=== PATIENT | male | born 1970 | race Caucasian/White ===

== ENCOUNTER 2016-02-19 04:01 | Emergency (ER) | payer SELFPAY ==
[2016-02-19 04:09] VITALS: TEMP 98.3
[2016-02-19 04:11] VITALS: BMI 30.1
--- NOTE | 2016-02-19 05:01 | EDPRACDOC ---
- General Chief Complaint: Fall Stated Complaint: FALL Time Seen by Provider: 02/19/16 04:18 Information Source: Patient - History of Present Illness Onset: 2 HOURS AGO HPI: PT PRESENTS WITH BACK PAIN AFTER FALLING DOWN STAIRS AT HOME A FEW HOURS AGO. PAIN IS IN LUMBAR SPINE. Pain Severity: Reports: Moderate Injuries/Pain Location: Reports: back (LUMBAR) Associated Symptoms (Fall): Reports: abdominal pain (RADIATING FROM BACK). Denies: chest pain Allergies/Adverse Reactions: Allergies Penicillins Allergy (Verified 02/19/16 04:07) Unknown tramadol [From Ultram] Allergy (Verified 02/19/16 04:07) Itching Home Medications: Ambulatory Orders Cyclobenzaprine HCl [Flexeril] 5 mg PO Q8H PRN #30 tablet 02/19/16 Ibuprofen Tablet [Motrin] 600 mg PO Q6H #30 tab 02/19/16 Oxycodone HCl [Roxicodone] 5 mg PO Q4-6H PRN #30 tablet 02/19/16 ED Past Medical History - History Reviewed Yes Nurses notes reviewed and agree except as marked - Patient Medical History Psychological History: Denies: Depression - Social Medical History Smoking Status: Heavy tobacco smoker (5 or more cigarettes/day or daily pipe/ cigar) Lives In: Home EDM Review of Systems - Review of Systems ROS Negative Except as Marked: Yes All systems reviewed and were negative except as marked Gastrointestinal: Pain (LOWER ABDOMEN). negative: Nausea, Vomiting Musculoskeletal: Back (LUMBAR BACK) - Physical Exam Constitutional: Alert, ETOH Oriented to: Time, Person, Place Last recorded Vital Signs: Last Vital Signs Temp 98.3 F 02/19/16 04:08 Pulse 88 02/19/16 04:08 Resp 18 02/19/16 04:08 BP 125/74 02/19/16 04:08 Pulse Ox 100 02/19/16 04:08 Oxygen Pulse Oxygen Saturation 100 O2 Device Room Air Oxygen Flow Rate Fraction of Inspired Oxygen ( FIO2) - HEENT Head: negative: Deformity, Laceration Eye Exam: negative: Conjunctival Injection, Pale Conjunctiva Oropharynx: negative: Membranes Dry Neck: Denies Pain, In Collar. negative: Limited ROM - Respiratory/Cardiovascular Respiratory: Normal - CTA. negative: Accessory Muscle Use, Diminished, Tachypnea Cardiovascular: negative: Bradycardia, Tachycardia, Irregular - GI Auscultation: Normal Palpation: Normal Tenderness: Non tender - Musculoskeletal Extremities: Radial Pulse (PALPABLE) - Integumentary Skin: Warm, Dry. negative: Rash - Neurologic Memory Impaired: Normal Motor Function: Normal Mood Description: Anxious Thought: Coherent Decision Time to Discharge: 05:37 - Departure Yes I personally saw and evaluated the patient. Disposition: Home Condition: Stable Final Diagnosis: Lumbar compression fracture Qualifiers: Encounter type: initial encounter Fracture type: closed Qualified Code(s): S32.000A - Wedge compression fracture of unspecified lumbar vertebra, initial encounter for closed fracture Instructions: RICE: Routine Care for Injuries, Vertebral Compression Fracture ( ED) Education/Counseling Given To: Patient Education/Counseling Given Regarding: Diagnosis, Treatment, Prognosis, Follow Up Referrals: None,No Provider [Primary Care Provider] - One Week Mart Killian MD [Staff Physician] - Call for Appointment Prescriptions: Cyclobenzaprine HCl [Flexeril] 5 mg PO Q8H PRN #30 tablet PRN Reason: Muscle Spasms Ibuprofen Tablet [Motrin] 600 mg PO Q6H #30 tab Oxycodone HCl [Roxicodone] 5 mg PO Q4-6H PRN #30 tablet PRN Reason: Breakthrough Pain Forms: Excuse Note
--- NOTE | 2016-02-19 05:10 | DIRPT ---
CLINICAL DATA: Status post fall down 15-20 steps, with lower back pain. Initial encounter. EXAM: LUMBAR SPINE - COMPLETE 4+ VIEW COMPARISON: Lumbar spine radiographs performed 03/16/2004, and MRI of the lumbar spine performed 04/13/2004 FINDINGS: There is compression deformity of vertebral body L1, with apparent fracture line noted anteriorly. This may also extend across the anterior inferior edge of vertebral body T12. There is mild grade 1 anterolisthesis of L3 on L4. Intervertebral disc spaces are preserved. The visualized neural foramina are grossly unremarkable in appearance. The visualized bowel gas pattern is unremarkable in appearance; air and stool are noted within the colon. The sacroiliac joints are within normal limits. IMPRESSION: Compression deformity of vertebral body L1, with apparent fracture line noted anteriorly. This may also extend across the anterior inferior edge of vertebral body T12. This is concerning for acute fracture, though some degree of underlying chronic compression deformity may be present. Electronically Signed By: Abhi Franklin M.D. On: 02/19/2016 05:08
[2016-02-19] MEDS ORDERED: OXYCODONE HCL 5 MG TABLET PO STA ×2 (05:26→06:19)
[2016-02-19] MEDS ORDERED: CYCLOBENZAPRINE 10 MG TAB PO STA (05:37)
[2016-02-19] MEDS ORDERED: IBUPROFEN 600 MG TAB PO STA (05:37)
[2016-02-19 06:43] VITALS: BP 137/72; PULSE 84
== END 2016-02-19 06:42 | disposition home or self-care (01) ==
LOC: ED 04:01
DX: S32.000A Wedge compression fracture of unspecified lumbar vertebra, initial encounter for closed fracture (principal); W10.9XXA Fall (on) (from) unspecified stairs and steps, initial encounter
CPT/HCPCS: 72110; 99283; J3490